=== PATIENT | female | born 1970 | race Caucasian/White ===

== ENCOUNTER 2020-08-06 14:44 | Outpatient (REF) | payer OTHER, SELFPAY ==
--- NOTE | ~2020-08-06 | MM_ITS ---
EXAMINATION: MM SCREENING DIGITAL BREAST TOMOSYNTHESIS, BILATERAL CLINICAL INFORMATION: Screening. Asymptomatic. The lifetime risk of breast cancer based on the Tyrer-Cuzick Model is 9%. COMPARISON: Mammography: 05/26/2019, 01/01/2019, 05/30/2018, 05/14/2017, 04/19/2016. TECHNIQUE: Digital breast tomosynthesis is performed in both the craniocaudal and mediolateral oblique views along with computer-aided detection (CAD). Synthesized 2D images are generated from the tomosynthesis. FINDINGS: The breasts are heterogeneously dense, which may obscure small masses (ACR BI-RADS breast composition Category c). There are no significant masses, abnormal calcifications, or other abnormalities. Breast tissue composition borders on average fibroglandular. No developing density. No significant changes. MM/MM tomosynthesis screening BI IMPRESSION: No mammographic evidence of malignancy. ASSESSMENT: BI-RADS 1: Negative RECOMMENDATION: Routine annual mammography screening. This patient's information was entered into a reminder system with a target due date for their next mammogram.
== END 2020-08-06 14:45 | disposition home or self-care (01) ==
LOC: HO.MAMMO 14:44
PROVIDERS: PCP Nurse Practitioner Family; Visit Provider Nurse Practitioner Family
DX: Z12.31 Encounter for screening mammogram for malignant neoplasm of breast (principal)
CPT/HCPCS: 77063; 77067

== ENCOUNTER 2021-01-20 08:35 | Outpatient (REF) | payer OTHER, SELFPAY ==
--- NOTE | ~2021-01-20 | XR_ITS ---
EXAMINATION: XR SHOULDER, LEFT CLINICAL INFORMATION: M25.519 - Pain in unspecified shoulder COMPARISON: None TECHNIQUE: Single AP view of the left shoulder is obtained with the humerus in external rotation. FINDINGS: There is no fracture or destructive process. No anterior dislocation. There is borderline elevated distal clavicle. No widening acromioclavicular joint. No visible rotator cuff calcifications. There is a small bone island in the humeral head. The left lung apex is clear. Spinal stimulator electrodes are seen with tips at mid thoracic spine. XR/XR shoulder LT 1V IMPRESSION: 1. No acute bony abnormality. 2. Spinal stimulator electrodes overlying mid thoracic spine.
== END 2021-01-20 08:36 | disposition home or self-care (01) ==
LOC: HO.HOSX 08:35
PROVIDERS: Visit Provider Orthopaedic Surgery
DX: M75.52 Bursitis of left shoulder (principal); M79.7 Fibromyalgia; F42.9 Obsessive-compulsive disorder, unspecified
CPT/HCPCS: 20610; 73020; 99202; J1100

== ENCOUNTER 2021-03-10 11:00 | Outpatient (RCR) | payer OTHER, SELFPAY ==
--- NOTE | 2021-02-16 11:51 | MHC.PT.EP ---
[facility] [place] [facility] [place] [facility] [place] [facility] [address] Heraclio Salas [address] [phone] F: [phone] F: [phone] F: [phone] F: [phone] Physical Therapy Plan of Care Date of Evaluation: Date of Surgery: n/a Diagnosis: L shoulder bursitis, pain Assessment: Patient is a 50 year old R handed female who presents with s/s consistent with L shoulder bursitis. 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 There is no PRASHANT with this diagnosis. Patient past medical history includes placement of spinal stimulator 1 year ago. Current impairments include pain, ROM, posture, strength, activity tolerance and functional mobility. Functional limitations include decreased ability to sleep, reach, lift, carry, and perform weight bearing activities.. Patient is motivated with good rehab potential. Skilled PT will address impairments and functional limitations in order to achieve goals. Frequency and Duration: The patient will be seen 2x/week for 5 weeks Short Term Goals: I with HEP - 2 weeks AROM flexion/abd to 120 each - 3 weeks Max pain with ADLs 3/10 - 3 weeks Jail Goals: SPADI 24/130 - 5 weeks AROM flex/abd 140, ER/IR arc to 130 - 5 weeks Max pain with ADLs 1/10 - 5 weeks Treatment Plan: Modalities to reduce pain, spasms and effusion. Manual therapy to restore motion and function. Therapeutic exercise to improve strength and flexibility. Neuromuscular re-education for posture and balance. Therapeutic activities to return to functional activities of daily living. Electronically signed by: Please sign and return to therapist. Thank you for your referral.
--- NOTE | 2021-04-15 09:23 | MHC.PT.DC ---
[facility] [place] Office [place] Office [place] Office [address] Heraclio Salas [address] [phone] F: [phone] F: [phone] F: [phone] F: [phone] Physical Therapy Discharge Report Diagnosis: L shoulder bursitis, pain Date of Surgery: n/a Date of Evaluation: 02/16/21 Date of Discharge: 03/16/21 Treatments to Date: 5 Cancellations to Date: No Shows to Date: Discharge Status: Independent with HEP Discharge Summary: Reduced s/s overall. I with HEP. AROM flexion to 150, abd 140 pain free. Max pain with ADLs 2/10. Electronically signed by: Mayo Green PT Please sign and return to therapist. Thank you for your referral.
== END 2021-07-18 11:48 | disposition home or self-care (01) ==
LOC: HO.PTCHIC 11:00
PROVIDERS: PCP Nurse Practitioner Family; Visit Provider Orthopaedic Surgery
DX: M89.8X1 Other specified disorders of bone, shoulder (principal); M75.52 Bursitis of left shoulder
CPT/HCPCS: 97035; 97110; 97140; 97162

== ENCOUNTER 2021-08-18 10:14 | Outpatient (REF) | payer OTHER, SELFPAY ==
--- NOTE | ~2021-08-18 | MM_ITS ---
EXAMINATION: MM SCREENING DIGITAL BREAST TOMOSYNTHESIS, BILATERAL CLINICAL INFORMATION: Screening. Asymptomatic. The lifetime risk of breast cancer based on the Tyrer-Cuzick Model is 9.1%. COMPARISON: Mammography: August 06, 2020 and studies dating back to October 24, 2011 TECHNIQUE: Digital breast tomosynthesis is performed in both the craniocaudal and mediolateral oblique views along with computer-aided detection (CAD). Synthesized 2D images are generated from the tomosynthesis. FINDINGS: The breasts are heterogeneously dense, which may obscure small masses (ACR BI-RADS breast composition Category c). There are no significant masses, abnormal calcifications, or other abnormalities. MM/MM tomosynthesis screening BI IMPRESSION: There are no significant changes from prior study. ASSESSMENT: BI-RADS 1: Negative RECOMMENDATION: Routine annual mammography screening. This patient's information was entered into a reminder system with a target due date for their next mammogram.
== END 2021-08-18 10:15 | disposition home or self-care (01) ==
LOC: HO.MAMMO 10:14
PROVIDERS: PCP Nurse Practitioner Family; Visit Provider Nurse Practitioner Family
DX: Z12.31 Encounter for screening mammogram for malignant neoplasm of breast (principal)
CPT/HCPCS: 77063; 77067

== ENCOUNTER 2021-11-21 11:24 | Emergency (ER) | payer OTHER, SELFPAY ==
[2021-11-21 12:27] VITALS: BP 140/83; PULSE 85; RESP 16; TEMP 36.2; O2SAT 97; BMI 23.8
[2021-11-21 12:38] LABS: MANUAL DIFF FLAG NO
[2021-11-21 12:39] LABS: Basophils Percent Auto 0.5 % (0-2); Eosinophils Absolute Auto 0.1 X10*3/uL (0.0-0.4); Eosinophils Percent Auto 0.7 % (0-4); Hematocrit 40.3 % (37.0-47.0); Hemoglobin 12.6 g/dl (12.0-16.0); Imm Gran Abs Auto 0.03 X10*3/uL (0.00-0.03); Imm Gran Pct Auto 0.3 % (0.0-0.4); Lymphocytes Percent Auto 34.5 % (20-40); Mean Corpuscular HGB Conc 31.3 g/dl (31.0-35.0); Mean Corpuscular Volume 80.1 fL (80.0-98.0); Mean Platelet Volume 9.1 fL (9.4-12.3); Monocytes Absolute Auto 0.5 X10*3/uL (0.1-1.2); Monocytes Percent Auto 5.2 % (2-11); Neutrophils Absolute Auto 5.1 x10*3/uL (2.0-8.3); Neutrophils Percent Auto 58.8 % (45-73); Platelet Count 233 X10*3/uL (160-400); Red Blood Count 5.03 X10*6/uL (4.20-5.50); Red Cell Distribution Width 15.3 % (11.0-16.0); White Blood Count 8.6 X10*3/uL (4.8-10.8)
[2021-11-21 12:57] LABS: Anion Gap 14 (12-20); Blood Urea Nitrogen 15 mg/dL (9-16); Calcium 9.3 mg/dL (8.4-10.2); Carbon Dioxide 26 mmol/L (22-29); Chloride 104 mmol/L (96-108); Creatinine Clr Calc Pharmacy 63.1; Estimated Glomerular Filt Rate > 60; Glucose Random 95 mg/dL (60-115); Potassium 4.9 mmol/L (3.3-5.1); Sodium 139 mmol/L (135-145)
== END 2021-11-21 17:18 | disposition left against medical advice (07) ==
PROVIDERS: Emergency Provider Emergency Medicine; PCP Nurse Practitioner Family
DX: K92.1 Melena (principal)
CPT/HCPCS: 36415; 80048; 85025; 99281; 99283

== ENCOUNTER 2022-07-31 12:47 | Outpatient (REF) | payer OTHER, SELFPAY ==
[2022-07-31 12:59] VITALS: BMI 25.7
[2022-07-31 13:00] VITALS: BP 98/64; PULSE 89; RESP 16; TEMP 36.5; O2SAT 95
[2022-07-31 14:11] VITALS: BP 105/66; PULSE 76; RESP 16; O2SAT 95
== END 2022-07-31 12:48 | disposition home or self-care (01) ==
LOC: HO.MS 12:47
PROVIDERS: PCP Nurse Practitioner Family; Visit Provider Ophthalmology
PROC: (CPT 67840; principal; 2022-07-31 16:10)
DX: H02.825 Cysts of left lower eyelid (principal)
CPT/HCPCS: 67840; 88304; 88305

== ENCOUNTER 2022-10-05 15:37 | Outpatient (REF) | payer OTHER, SELFPAY ==
--- NOTE | ~2022-10-05 | MM_ITS ---
EXAMINATION: MM SCREENING DIGITAL BREAST TOMOSYNTHESIS, BILATERAL CLINICAL INFORMATION: Screening. Asymptomatic. The lifetime risk of breast cancer based on the Tyrer-Cuzick Model is 10.6%. COMPARISON: Mammography: This study is compared with prior exams dating back to 2019. TECHNIQUE: Digital breast tomosynthesis is performed in both the craniocaudal and mediolateral oblique views along with computer-aided detection (CAD). Synthesized 2D images are generated from the tomosynthesis. FINDINGS: The breasts are heterogeneously dense, which may obscure small masses (ACR BI-RADS breast composition Category c). In the lateral aspect of the right breast, there is an asymmetry for which additional mammographic imaging is advised. There are no other significant findings in the right breast. In the left breast, there are no significant masses, abnormal calcifications, or other abnormalities. MM/MM tomosynthesis screening BI IMPRESSION: Asymmetry of the right breast warrants additional mammographic imaging. Sonography may be performed at the discretion of the diagnostic radiologist. No mammographic signs of malignancy left breast. ASSESSMENT: BI-RADS BI-RADS 0 - Incomplete: Needs additional Imaging. RECOMMENDATION: 1. Additional views of the right breast 2. Targeted ultrasound if warranted after review of the additional views. 3. Radiology department staff will contact the patient for additional imaging. Additional Imaging required This examination should not preclude the clinical evaluation of a suspicious palpable abnormality. This patient's information was entered into a reminder system with a target due date for their next mammogram.
== END 2022-10-05 15:38 | disposition home or self-care (01) ==
LOC: HO.MAMMO 15:37
PROVIDERS: PCP Nurse Practitioner Family; Visit Provider Nurse Practitioner Family
DX: Z12.31 Encounter for screening mammogram for malignant neoplasm of breast (principal)
CPT/HCPCS: 77063; 77067

== ENCOUNTER → 2022-10-05 16:00 | Outpatient (BNV) | payer OTHER, SELFPAY | PROVIDERS: PCP Nurse Practitioner Family; Visit Provider Radiology Diagnostic Radiology | DX: Z12.31 Encounter for screening mammogram for malignant neoplasm of breast (principal) | CPT/HCPCS: 77063; 77067 ==

== ENCOUNTER 2022-11-09 12:56 | Outpatient (REF) | payer OTHER, SELFPAY ==
--- NOTE | ~2022-11-09 | MM_ITS ---
EXAMINATION: MM DIAGNOSTIC DIGITAL BREAST TOMOSYNTHESIS, RIGHT CLINICAL INFORMATION: Callback for asymmetry in the lateral aspect of the right breast seen on CC view only with no MLO correlate on screening exam. COMPARISON: Mammography: 10/05/2022, 08/18/2021, 08/06/2020, 05/26/2019, and dating back to 2019. TECHNIQUE: Digital right breast tomosynthesis is performed in full field 3-D right mediolateral view, and 3-D spot compression right CC view, along with computer-aided detection (CAD). Synthesized 2D images are generated from the tomosynthesis. FINDINGS: The breasts are heterogeneously dense, which may obscure small masses (ACR BI-RADS breast composition Category c). The previously identified 1 view asymmetry in the lateral right breast, middle one third, effaces on additional views and is consistent with superimposition artifact/summation artifact of normal glandular tissue. There are a few scattered punctate extremely fine and subtle scattered calcifications within the dense lateral tissue, previously seen and unchanged from prior studies, benign. No suspicious or aggressive changes. There is otherwise no suspicious mass, developing focus of architectural distortion, or other concerning abnormality within the right breast. MM/MM tomosynthesis diagnostic RT IMPRESSION: There are no persistent findings suspicious for malignancy right breast. Recommend the patient resume routine annual screening. ASSESSMENT: BI-RADS BI-RADS 2 - Benign Findings RECOMMENDATION: 1 year F/U Results were provided to the patient at time of visit by the technologist. This patient's information was entered into a reminder system with a target due date for their next mammogram.
== END 2022-11-09 12:57 | disposition home or self-care (01) ==
LOC: HO.MAMMO 12:56
PROVIDERS: PCP Nurse Practitioner Family; Visit Provider Nurse Practitioner Family
DX: N64.89 Other specified disorders of breast (principal); Q67.8 Other congenital deformities of chest
CPT/HCPCS: 77061; 77065

== ENCOUNTER → 2022-11-09 13:00 | Outpatient (BNV) | payer OTHER, SELFPAY | PROVIDERS: PCP Nurse Practitioner Family; Visit Provider Radiology Diagnostic Radiology | DX: N64.89 Other specified disorders of breast (principal) | CPT/HCPCS: 77061; 77065 ==

== ENCOUNTER 2023-10-11 08:49 | Outpatient (REF) | payer OTHER, SELFPAY ==
--- NOTE | ~2023-10-11 | MM_ITS ---
EXAMINATION: MM SCREENING DIGITAL BREAST TOMOSYNTHESIS, BILATERAL CLINICAL INFORMATION: Screening. Asymptomatic. COMPARISON: Mammography: This study is compared with prior exams dating back to 2019. TECHNIQUE: Digital breast tomosynthesis is performed in both the craniocaudal and mediolateral oblique views along with computer-aided detection (CAD). Synthesized 2D images are generated from the tomosynthesis. FINDINGS: The breasts are heterogeneously dense, which may obscure small masses (ACR BI-RADS breast composition Category c). There are no significant masses, abnormal calcifications, or other abnormalities. MM/MM tomosynthesis screening BI IMPRESSION: No mammographic evidence of malignancy. ASSESSMENT: BI-RADS BI-RADS 1 - Negative RECOMMENDATION: Routine annual mammography screening. 1 year F/U This examination should not preclude the clinical evaluation of a suspicious palpable abnormality. This patient's information was entered into a reminder system with a target due date for their next mammogram. Electronically signed by: Cathy Mckeon MD 11/05/2023 02:33 AM EDT
== END 2023-10-11 08:50 | disposition home or self-care (01) ==
LOC: HO.MAMMO 08:49
PROVIDERS: PCP Nurse Practitioner Family; Visit Provider Nurse Practitioner Family
DX: Z12.31 Encounter for screening mammogram for malignant neoplasm of breast (principal)
CPT/HCPCS: 77063; 77067

== ENCOUNTER → 2023-10-11 09:15 | Outpatient (BNV) | payer OTHER, SELFPAY | PROVIDERS: PCP Nurse Practitioner Family; Visit Provider Radiology Diagnostic Radiology | DX: Z12.31 Encounter for screening mammogram for malignant neoplasm of breast (principal) | CPT/HCPCS: 77063; 77067 ==

== ENCOUNTER 2024-10-16 09:30 | Outpatient (REF) | payer OTHER, SELFPAY ==
--- OUTSIDE RECORDS SUMMARY | 2024-10-16 09:55 | XMS_ITS | Patient Health Record ---
Author Organization [facility] Address [address] [place] [id number] Care Team Providers Care Mortgage Operations Manager Name Role Phone Joce Lacey ALMAZAN Primary Care Provider Magan Jackson Jr Unavailable Allergies Allergen (clinical drug ingredient) Drug/Non Drug Allergy documented on EMR Reaction Allergy Type Onset Date Status ziprasidone Geodon Unknown Drug Allergy Activ e Reason For Referral No Information Medications Medication SIG (Take, Route, Fr equency, Duration) Notes Start Date End Date Status hydrOXYzine HCl 25 MG Oral for 90 Active Latuda 20 MG Oral for 90 Activ e Multivitamin Active Nicotrol 10 MG Inhalation for 14 Active traZODone HCl 100 MG Oral for 90 Active Benazepril HCl 10 MG Oral for 30 Active busPIRone HCl 15 MG Oral for 90 Active DULoxetine HCl 60 MG Oral for 15 Active Vitamin D Active Omeprazole 40 MG Oral for 90 A ctive tiZANidine HCl 2 MG Oral for 30 Active Problems Problem Type SNOMED Code ICD Code Onset Dates Problem Status W/U Status Risk Notes Problem [id number] Mcnally's esophagus without dysplasia (K22.70) Active confirmed Problem 523445152 Blood in stool (K92.1) Active confirmed Plan Of Treatment Future Test Test Name Order Date UPPER GI ENDOSCOPY 03/08/2012 COLONOSCOPY 03/08/2012 UPPER GI ENDOSCOPY 05/27/2014 COLONOSCOPY 06/01/2022 UPPER GI ENDOSCOPY 07/05/2022 Insurance Providers Payer Name Payer Address Payer Phone Subscriber Number Group Number Insured Name Patient Relationship to Insured Coverage Start Date Coverage End Date [facility] [address] [place] [address] [id number] CHELSEA DENNEY Self - patient is the insured Medical (General) History Medical History History ICD Code insomnia learning disability CKD Stage 3 asthma COPD fibromyalgia BURSITIS IN HIPS OCD Bipolar disorder Surgical History Surgery Date(Month/Year) endometriosis status post laparoscopy 29 06 cholecystectomy 2004 herniated lumbar disc status post surger y nephrolithiasis status post ESWL tubal ligation Spinal cord stimulator
--- OUTSIDE RECORDS SUMMARY | 2024-10-16 09:55 | XMS_ITS | Patient Health Record ---
[facility] Address [address] [place] [address] Care Team Providers Care Rifle Case Repairer Name Role Phone Lacey Hobson Primary Care Provider Natalee Tipton Unavailable [phone] Allergies Allergen (clinical drug ingredient) Drug/Non Drug Allergy documented on EMR Reaction Allergy Type Onset Date Status General/Spinal (uncoded) Unknown Allergy Active acetaminophen Tylenol Unknown Drug Allergy Act flip gentamicin Gentamicin Unknown Drug Allergy Activ e Reason For Referral No Information Medications Medication SIG (Take, Route, Frequency, Duration) Notes Start Date End Date Status Dulcolax Active Vitamin E Active busPIRone HCl 15 MG 1 tablet Orally Twic e a day Active tiZANidine HCl 4 MG 1 tablet as needed O rally Twice a day Active Pregabalin Active Meloxicam 15 MG 1 tablet Orally Once a day; Duration: 30 day(s) Active traZODone HCl 100 MG 1 tablet at bedtime Orally twice a day Active Biotin 5000 MCG 1 capsule Orally Onc e a day; Duration: 30 day(s) Active Senna Laxative Activ e Omeprazole 40 MG 1 capsule 30 minutes before morning meal Orally Once a day; Duration: 30 day(s) Active amLODIPine Besy-Benazepril HCl 10-20 MG as directed Orally Active DULoxetine HCl 60 MG 1 capsule Orally Tw ice a day Active Cephalexin 500 MG 1 capsule Orally dustin ry 12 hrs; Duration: 5 day(s) Active Immunizations Vaccine Route Administration Date Status Comme nts COVID-19 Moderna Vaccine Unknown 06/08/2020 Administered Second Dose: 06/25/2020 Social History Tobacco Use: Social History Observation Description Date Details (start date - stop date) Current Smoker NA - NA Tobacco Use/Smoking Question Answer Notes Are you a: current smoker How many cigarettes a day do you smoke? 11 Alcohol Screen Question Answer Notes Did you have a drink containing alcohol in the p ast year? No Points 0 Interpretation Negative Tobacco use other than smoking: Question Answer Notes Are you an other tobacco user? No Plan Of Treatment Next Appt Details Provider Name:Natalee whitt, 11/18/2024 10:30:00 AM, [address] [place] [address], [phone], Insurance Providers Payer Name Payer Address Payer Phone Subscriber Number Group Number Insured Name Patient Relationship to Insured Coverage Start Date Coverage End Date [facility] [employer] Claims [address] [place] [id number] Johana Barber Self - patient is the insured Medical (General) History Medical History History ICD Code Anxiety Arthritis asthma Back,Hip,and Knee pain Broken bones Depression Fibromyalgia Gall bladder High blood pressure Macular degeneration nerve disorder Neuropathy Psychiatric disorder Chicken pox Kidney disease Joint implants/screws Bipolar disorder hard of hearing COPD bursitis of right foot Jeret DIC Disease Chronic Back Problems Surgical History Surgery Date(Month/Year) gall bladder sugery back surgery 02/27/2020 hysterectomy
== END 2024-10-16 09:31 | disposition home or self-care (01) ==
LOC: HO.MAMMO 09:30
PROVIDERS: Visit Provider Nurse Practitioner Family
DX: Z12.31 Encounter for screening mammogram for malignant neoplasm of breast (principal)
CPT/HCPCS: 77063; 77067

== ENCOUNTER → 2024-10-16 09:45 | Outpatient (BNV) | payer OTHER, SELFPAY | PROVIDERS: Visit Provider Radiology Body Imaging | DX: Z12.31 Encounter for screening mammogram for malignant neoplasm of breast (principal) | CPT/HCPCS: 77063; 77067 ==